=== PATIENT | female | born 1990 | race Caucasian/White ===

== ENCOUNTER 2016-08-14 02:51 | Emergency (ER) | payer MEDICAID, OTHER ==
[~2016-08-14] VITALS: Ht 157.5 cm; Wt 85.5 kg
[~2016-08-14 02:51] MED LIST: ACET1TAB40 PO; BISA10SU58 PR; BISM262O23 PO; CEPH-443 PO; CIPR500T4 PO; LACT10SO5 PO; PHEN-538 PO; PREN1TAB13 PO
[2016-08-14 03:06] VITALS: Ht 157.5 cm; Wt 85.5 kg
[2016-08-14] MEDS ORDERED: ONDANSETRON 4 MG INJ IV STA (04:12)
[2016-08-14 04:51] LABS: ADD SCAN DIFF NO
[2016-08-14 04:54] LABS: BASOPHILS % 0.3 % (0.0-2.0); EOSINOPHILS # 0.1 10^3/ul (0.0-0.5); EOSINOPHILS % 1.5 % (0.0-7.0); HEMATOCRIT 35.4 % (37.0-47.0); HEMOGLOBIN 11.4 g/dl (12.0-16.0); LYMPHOCYTES # 2.6 10^3/ul (0.8-2.9); LYMPHOCYTES % 36.5 % (15.0-51.0); MEAN CORPUSCULAR HEMOGLOBIN 28.7 pg (29.0-33.0); MEAN CORPUSCULAR HGB CONC 32.2 g/dl (32.0-37.0); MEAN CORPUSCULAR VOLUME 89.2 fl (82.0-101.0); MONOCYTE # 0.6 10^3/ul (0.3-0.9); MONOCYTES % 8.2 % (0.0-11.0); NEUTROPHIL # 3.8 10^3/ul (1.6-7.5); NEUTROPHILS % 53.2 % (39.0-77.0); PLATELET COUNT 223 10^3/UL (140-415); RED BLOOD COUNT 3.97 10^6/ul (4.20-5.40); RED CELL DISTRIBUTION WIDTH 13.2 % (11.5-14.5); WHITE BLOOD COUNT 7.2 10^3/ul (4.8-10.8)
[2016-08-14 05:11] LABS: ALBUMIN 4.1 g/dl (3.3-4.9); ALBUMIN/GLOBULIN RATIO 2.05; CALCIUM 8.8 mg/dl (8.4-10.2); CREATININE 0.6 mg/dl (0.44-1.00); POTASSIUM 3.8 mmol/L (3.5-5.1); TOTAL PROTEIN 6.1 g/dl (6.1-8.1)
[2016-08-14 05:26] LABS: ADD UMIC YES; UR ASCORBIC ACID NEGATIVE (NEGATIVE); UR BILIRUBIN (Dip) NEGATIVE (NEGATIVE); UR BLOOD (Dip) NEGATIVE (NEGATIVE); UR CLARITY SLIGHTLY CLOUDY (CLEAR); UR COLOR YELLOW (YELLOW); UR GLUCOSE (Dip) NEGATIVE (NEGATIVE); UR KETONES (Dip) NEGATIVE (NEGATIVE); UR LEUKOCYTE ESTERASE (Dip) 1+ Leu/ul (NEGATIVE); UR MUCUS FEW /HPF (NONE SEEN); UR NITRITE (Dip) NEGATIVE (NEGATIVE); UR RBC 0 /HPF (0-5); UR SPECIFIC GRAVITY (Dip) 1.017 (1.003-1.030); UR SQUAMOUS EPITHELIAL CELL FEW /HPF (FEW); UR TOTAL PROTEIN (Dip) NEGATIVE (NEGATIVE); UR UROBILINOGEN (Dip) 1+ mg/dL (NEGATIVE)
[2016-08-14] MEDS ORDERED: ONDA4TAB11 PO (06:38)
[2016-08-14] MEDS ORDERED: POLY17PO6 PO (06:38)
[2016-08-14] MEDS ORDERED: MAGN296S40 PO (06:38)
[2016-08-14] MEDS ORDERED: NAPR-688 PO (06:38)
[2016-08-14] MEDS ORDERED: KETOROLAC 30 MG INJ IV STA (06:40)
--- NOTE | 2016-08-14 06:41 | ERD ---
ER Documentation Chief Complaint Date/Time DATE: 08/14/16 TIME: 06:38 Chief Complaint AP for a week and nausea, pain worse after eating HPI 26-year-old female presents for abdominal pain on and off for a week that is migratory in the lower left abdomen and is worse after eating. States that she may be constipated. Denies any fevers and chills. Denies dysuria. ROS All systems reviewed and are negative except as per history of present illness. Medications Home Meds Active Scripts Ondansetron (Zofran Odt) 4 Mg Tab.rapdis, 4 MG PO Q6 for NAUSEA AND/OR VOMITING , #10 Prov:JAKE CHÁVEZ 08/14/16 Magnesium Citrate* (Magnesium Citrate*) 296 Ml Solution, 296 ML PO ONCE, #1 BOTTLE Prov:JAKE CHÁVEZ 08/14/16 Polyethylene Glycol* (Miralax*) 17 Gm Powd.pack, 17 GM PO DAILY, #7 Prov:DORIS CHÁVEZSHUA 08/14/16 Naproxen* (Naproxen*) 500 Mg Tablet, 500 MG PO BID Y for pian, #20 TAB Prov:JAKE CHÁVEZ 08/14/16 Bisacodyl* (Dulcolax*) 10 Mg/Supp.rect Supp.rect, 10 MG [place] DAILY, #4 SUPP.RECT Prov:CESILIA,SARAH 12/15/14 Lactulose* (Lactulose*) 10 Gm/15 Ml Solution, 10 GM PO DAILY, #4 OZ Prov:CESILIA,SARAH 12/15/14 Phenazopyridine Hcl* (Pyridium*) 200 Mg Tab, 200 MG PO TID, #6 TAB Prov:CESILIA,SARAH 12/15/14 Ciprofloxacin Hcl* (Ciprofloxacin Hcl*) 500 Mg Tablet, 500 MG PO BID, #6 TAB Prov:CESILIA,SARAH 12/15/14 Bismuth Subsalicylate* (Pepto-Bismol*) 262 Mg/15 Ml Oral.susp, 15 ML PO Q3H Y for DIARRHEA for 5 Days, ML Prov:KATIA COREY MD 12/02/14 Acetaminophen-Codeine* (Acetaminophen-Cod #3*) 300-30 Mg Tab, 1 TAB PO Q4H Y for PAIN, #14 TAB Prov:KATIA COREY MD 12/02/14 Cephalexin* (Keflex*) 500 Mg Capsule, 500 MG PO QID for 5 Days, CAP Prov:KATIA COREY MD 12/02/14 Reported Medications Vit-Iron Fumarate-FA ( Vitamins Tablet) 1 Tab Tablet, 1 TAB PO DAILY, TAB 06/30/14 Allergies Allergies: Coded Allergies: No Known Allergies (Verified Allergy, Unknown, 06/30/14) Uncoded Allergies: LATEX/ IRRITATION AND REDNESS (Allergy, Mild, 09/06/11) PMhx/Soc Medical and Surgical Hx: pt denies Medical Hx, pt denies Surgical Hx History of Surgery: No Anesthesia Reaction: No Hx Neurological Disorder: No Hx Respiratory Disorders: No Hx Cardiac Disorders: No Hx Psychiatric Problems: No Hx Miscellaneous Medical Probl: No Hx Alcohol Use: No Hx Substance Use: No Hx Tobacco Use: No Smoking Status: Never smoker Physical Exam Vitals Vital Signs Date Time Temp Pulse Resp B/P Pulse Ox O2 Delivery O2 Flow Rate FiO2 08/14/16 03:06 97.6 72 16 112/65 99 Physical Exam Const: [] No distress Head: Atraumatic Eyes: Normal Conjunctiva ENT: Normal External Ears, Nose and Mouth. Neck: Full range of motion..~ No meningismus. Resp: Clear to auscultation bilaterally Cardio: Regular rate and rhythm, no murmurs Abd: Soft, mild left mid abdominal tenderness and mild left lower quadrant abdominal tenderness without guarding or rebound, non distended. Normal bowel sounds Skin: No petechiae or rashes Back: No midline or flank tenderness Ext: No cyanosis, or edema Neur: Awake and alert Psych: Normal Mood and Affect Result Diagram: 08/14/1640908/14/16409 Results 24 hrs Laboratory Tests Test 08/14/16 04:10 White Blood Count 7.210^3/ul Red Blood Count 3.9710^6/ul Hemoglobin 11.4g/dl Hematocrit 35.4% Mean Corpuscular Volume 89.2fl Mean Corpuscular Hemoglobin 28.7pg Mean Corpuscular Hemoglobin Concent 32.2g/dl Red Cell Distribution Width 13.2% Platelet Count 92773^3/UL Mean Platelet Volume 11.0fl Neutrophils % 53.2% Lymphocytes % 36.5% Monocytes % 8.2% Eosinophils % 1.5% Basophils % 0.3% Nucleated Red Blood Cells % 0.0/100WBC Neutrophils # 3.810^3/ul Lymphocytes # 2.610^3/ul Monocytes # 0.610^3/ul Eosinophils # 0.110^3/ul Basophils # 0.010^3/ul Nucleated Red Blood Cells # 0.010^3/ul Urine Color YELLOW Urine Clarity SLIGHTLY CLOUDY Urine pH 6.0 Urine Specific [place] 1.017 Urine Ketones NEGATIVEmg/dL Urine Nitrite NEGATIVEmg/dL Urine Bilirubin NEGATIVEmg/dL Urine Urobilinogen 1+mg/dL Urine Leukocyte Esterase 1+[place]/ul Urine Microscopic RBC 0/HPF Urine Microscopic WBC 1/HPF Urine Squamous Epithelial Cells FEW/HPF Urine Mucus FEW/HPF Urine Hemoglobin NEGATIVEmg/dL Urine Glucose NEGATIVEmg/dL Urine Total Protein NEGATIVEmg/dl Sodium Level 142mmol/L Potassium Level 3.8mmol/L Chloride Level 103mmol/L Carbon Dioxide Level 28mmol/L Anion Gap 15 Blood Urea Nitrogen 11mg/dl Creatinine 0.60mg/dl Glucose Level 90mg/dl Calcium Level 8.8mg/dl Total Bilirubin 0.0mg/dl Direct Bilirubin 0.00mg/dl Indirect Bilirubin 0.0mg/dl Aspartate Amino Transf (AST/SGOT) 15IU/L Alanine Aminotransferase (ALT/SGPT) 27IU/L Alkaline Phosphatase 42IU/L Total Protein 6.1g/dl Albumin 4.1g/dl Globulin 2.00g/dl Albumin/Globulin Ratio 2.05 Lipase 71U/L Current Medications Medications (Trade) Dose Ordered Sig/Kinza Route PRN Reason Start Time Stop Time Status Last Admin Dose Admin Ondansetron HCl (Zofran Inj) 4 mg ONCE STAT IV 08/14/16 04:12 08/14/16 04:14 DC 08/14/16 04:53 Procedures/MDM Abdominal pain with the pain pattern and x-ray consistent with constipation. Otherwise normal labs. No sign of urinary tract infection. Mild leukocytosis without any signs of infection. He was given Toradol and Zofran in the emergency room. I am going to discharge her with naproxen as well as MiraLAX and magnesium citrate. Zofran ODT for nausea. Primary care follow-up in 2 3 days and return precautions Abdominal x-ray two-view interpretation: I see stool retention throughout the colon, no obstruction, no free air, no fractures. Departure Diagnosis: Primary Impression: Abdominal pain Additional Impression: Constipation Condition: Stable Patient Instructions: Abdominal Pain Additional Instructions: Call your primary care doctor TOMORROW for an appointment during the next 2-3 days.See the doctor sooner or return here if your condition worsens before your appointment time. JAKE CHÁVEZ DO Aug 14, 2016 06:41
[2016-08-14 07:12] VITALS: BP 106/67; PULSE 78; RESP 16; TEMP 97.8
--- NOTE | 2016-08-14 07:58 | RADRPT ---
PROCEDURE: ABDOMINAL - 3 VIEWS CLINICAL INDICATION: 26-year-old female with abdominal pain and constipation. TECHNIQUE: AP supine and upright views of the abdomen were obtained. The images reviewed on a PA [employer] workstation. COMPARISON: Abdominal radiographs December 02, 2014. FINDINGS: The lung bases are unremarkable. There is no free air beneath the hemidiaphragms. There is moderate retained stool throughout the colon without gross bowel obstruction. There are no abnormal calcifica tions overlying the urinary tracts. The osseous structures are unremarkable. IMPRESSION: Retained stool without gross bowel obstruction. .Adrian Mota MD, MD Date Time Electronically viewed and signed by .Adrian Mota MD, on 08/14/2016 07:58 .[place]/
== END 2016-08-14 07:20 | disposition home or self-care (01) ==
LOC: E/R 02:51
DX: R10.32 Left lower quadrant pain (principal); K59.00 Constipation, unspecified; R11.0 Nausea
CPT/HCPCS: 36415; 74010; 80053; 81001; 83690; 85025; 96374; 96375; J1885; Z7502